=== PATIENT | male | born 1955 | race Caucasian/White ===

== ENCOUNTER 2018-07-09 08:00 | Day surgery (SDC) | payer BC ==
[~2018-07-09 08:00] MED LIST: CEFAZOLIN 1 GM INJ; CEFAZOLIN 2 GM/50 ML (PMX) 50 ML IVPB; SEVOFLURANE 15 MIN; SOD CHLORIDE 0.9% 1,000 ML IV
[2018-07-09] MEDS ORDERED: MIDAZOLAM 1 MG/ML 2 ML INJ IV (10:30)
[2018-07-09] MEDS ORDERED: FENTAnyl 50 MCG/ML VIAL IV (10:30)
[2018-07-09] MEDS ORDERED: HYDROmorphONE 1 MG/5 ML IV SYRINGE IV ×3 (10:30)
[2018-07-09] MEDS ORDERED: DIPHENHYDRAMINE 50 MG INJ IV (10:30)
[2018-07-09] MEDS ORDERED: METOCLOPRAMIDE 10 MG INJ IV (10:30)
[2018-07-09] MEDS ORDERED: OXYCODONE/ACETAMINOPHEN (5/325) TAB PO (10:30)
[2018-07-09] MEDS ORDERED: LIDOCAINE 2% (SDV) 5 ML INJ (10:34)
[2018-07-09] MEDS ORDERED: NEOSTIGMINE 3 MG/3 ML SYRINGE (10:34)
[2018-07-09] MEDS ORDERED: GLYCOPYRROLATE 0.4 MG INJ (10:34)
[2018-07-09] MEDS ORDERED: PROPOFOL 20 ML (10:34)
[2018-07-09] MEDS ORDERED: ROCURONIUM 50 MG INJ (10:34)
[2018-07-09] MEDS ORDERED: SUCCINYLCHOLINE CHLORIDE 100 MG/5 ML SYG IV (10:34)
[2018-07-09] MEDS ORDERED: MEPERIDINE 100 MG INJ (10:35)
[2018-07-09] MEDS: BUPIVACAINE 0.25% (MPF) 30 ML INJ (11:13)
[2018-07-09] MEDS: MEPERIDINE 25 MG INJ IV (11:52)
[2018-07-09] MEDS: ONDANSETRON 4 MG INJ IV (11:53)
[2018-07-09] MEDS: FENTAnyl 50 MCG/ML VIAL IV ×3 (12:02→12:15)
[2018-07-09] MEDS: POLYMYXIN/BACITRACIN 1L IRRIG (12:14)
[2018-07-09] MEDS: HYDROCODONE/APAP (5/325) TAB PO (12:20)
[2018-07-09] MEDS: OXYCODONE/ACETAMINOPHEN (5/325) TAB PO (13:52)
== END 2018-07-09 14:30 | disposition home or self-care (01) ==
LOC: SDS 08:00
DX: K43.9 Ventral hernia without obstruction or gangrene (principal)
CPT/HCPCS: 49653